=== PATIENT | female | born 1975 | race Caucasian/White ===

== ENCOUNTER 2022-02-18 10:46 | Emergency (ER) | payer OTHER ==
[2022-02-18] MEDS ORDERED: Famotidine/PF 20 mg/2ml Vial ONE (11:04)
[2022-02-18] MEDS ORDERED: methylPREDNISolone Sod Succ/PF 125 MG/2 ML VIAL ONE (11:04)
[2022-02-18 12:59] LABS: #Lymphocytes 0.5 thou/uL (1.20-3.40); #Monocytes 0.3 thou/uL (0.11-0.59); %Basophils 0.1 % (0.0-1.0); %Eosinophils 0.3 % (0.0-10.0); %Lymphocytes 5.1 % (21.0-51.0); %Monocytes 3.5 % (0.0-10.0); Hemoglobin 13.2 g/dL (12.0-16.0); Mean Corpuscular HGB CONC 34.4 g/dL (32.0-36.0); Mean Corpuscular Hemoglobin 31.5 pg (27.0-31.0); Mean Corpuscular Volume 91.6 fl (78.0-98.0); Mean Platelet Volume 7.2 fL (7.4-10.4); Platelet Count 240 10x3/uL (130-400); RBC Distribution Width 11.1 % (11.5-14.5); Red Blood Cell (RBC) Count 4.18 mill/uL (4.20-5.40); White Blood Cell (WBC) Count 8.8 10x3/uL (4.8-10.8)
[2022-02-18 13:28] LABS: ALT (SGPT) 22 U/L (8-55); AST (SGOT) 13 U/L (5-34); Albumin 3.9 g/dL (3.5-5.0); Alkaline Phosphatase 61 U/L (40-110); Anion Gap 14 mmol/L (10-20); BUN (Urea Nitrogen) Less than 4 mg/dL (7.0-18.7); Bilirubin, Total 0.3 mg/dL (0.2-1.2); Calc. Creatinine Clearance 0 mL/min (70-130); Calcium 8.6 mg/dL (7.8-10.44); Carbon Dioxide 23 mmol/L (22-29); Chloride 109 mmol/L (98-107); Estimated GFR 109; Globulin 2.2 g/dL (2.4-3.5); Glucose 87 mg/dL (70-105); Potassium 3.6 mmol/L (3.5-5.1); Protein, Total 6.1 g/dL (6.0-8.3); Sodium 142 mmol/L (136-145)
[2022-02-18] MEDS ORDERED: diphenhydrAMINE 50 MG/ML VIAL ONE (13:59)
== END 2022-02-18 14:20 | disposition home or self-care (01) ==
LOC: ERS 10:46
DX: T78.40XA Allergy, unspecified, initial encounter (principal)
CPT/HCPCS: 36415; 80053; 83735; 85025; 96374; 96375; J1200; J2930; S0028

== ENCOUNTER 2022-03-18 14:48 | Inpatient (IN) | payer OTHER ==
[2022-03-18 16:39] LABS: #Lymphocytes 0.6 thou/uL (1.20-3.40); #Monocytes 0.6 thou/uL (0.11-0.59); #Neutrophils 4.5 thou/uL (1.40-6.50); %Basophils 0.2 % (0.0-1.0); %Lymphocytes 10.2 % (21.0-51.0); %Monocytes 9.9 % (0.0-10.0); %Neutrophils 79.7 % (42.0-75.0); Hemoglobin 15.5 g/dL (12.0-16.0); Mean Corpuscular HGB CONC 34.6 g/dL (32.0-36.0); Mean Corpuscular Hemoglobin 30.9 pg (27.0-31.0); Mean Corpuscular Volume 89.3 fl (78.0-98.0); Mean Platelet Volume 7.5 fL (7.4-10.4); Platelet Count 222 10x3/uL (130-400); RBC Distribution Width 12.1 % (11.5-14.5); White Blood Cell (WBC) Count 5.7 10x3/uL (4.8-10.8)
[2022-03-18 16:56] LABS: ALT (SGPT) 50 U/L (8-55); AST (SGOT) 27 U/L (5-34); Albumin 3.9 g/dL (3.5-5.0); Alkaline Phosphatase 60 U/L (40-110); Anion Gap 19 mmol/L (10-20); BUN (Urea Nitrogen) Less than 4 mg/dL (7.0-18.7); Bilirubin, Total 0.9 mg/dL (0.2-1.2); Calc. Creatinine Clearance 0 mL/min (70-130); Calcium 9.4 mg/dL (7.8-10.44); Carbon Dioxide 18 mmol/L (22-29); Chloride 107 mmol/L (98-107); Estimated GFR 108; Globulin 2.8 g/dL (2.4-3.5); Glucose 88 mg/dL (70-105); Lipase 17 U/L (8-78); Magnesium 1.6 mg/dL (1.6-2.6); Potassium 3.1 mmol/L (3.5-5.1); Protein, Total 6.7 g/dL (6.0-8.3); Sodium 141 mmol/L (136-145)
[2022-03-18 16:57] LABS: Bilirubin Negative (Negative); Blood, Urine Negative (Negative); Clarity Clear (Clear); Glucose, Urine (Dipstick) 500 mg/dL (Negative); Ketone, Urine 150 mg/dL (Negative); Leukocyte Negative Leu/uL (Negative); Nitrite Negative (Negative); Pregnancy Test - Urine (BHCG) Negative (Negative); Pregu Control Background? CLEAR/WHITE (CLR/WHITE); Pregu Control Bar Appear? YES (CONTROL BAR); Protein, Urine (Dipstick) Negative (Neg-Trace); Specific Gravity 1.014 (1.002-1.036); Specific Gravity, Urine 1.014 (1.002-1.036); Urobilinogen Normal mg/dL (Less than 2)
[2022-03-18] MEDS ORDERED: Ondansetron ODT 4 MG TAB PO PRN (17:39)
[2022-03-18] MEDS ORDERED: Sodium Chloride 0.9% 1,000 ML IV SCH (17:45)
[2022-03-18] MEDS ORDERED: Dextrose 50% Abboject 50 ML SYRINGE SLOW IVP PRN (18:23)
[2022-03-18] MEDS ORDERED: Dextrose 5% in Water 1,000 ML IV PRN (18:23)
[2022-03-18] MEDS ORDERED: Potassium Chloride 20 MEQ/100 ML PREMIX BAG ONE ×2 (18:35→23:50)
[2022-03-18] MEDS ORDERED: hydrOXYzine 25 MG TAB PO PRN (18:36)
[2022-03-18] MEDS ORDERED: EPINEPHrine 1 mg/ml MDV (1ml Charge) IM PRN (18:38)
[2022-03-18] MEDS ORDERED: Electrolyte Replacement Protocol FS SCH (18:45)
[2022-03-18] MEDS ORDERED: Famotidine/PF 20 mg/2ml Vial ONE (20:50)
[2022-03-18] MEDS: Famotidine/PF 20 mg/2ml Vial SLOW IVP SCH (20:57)
[2022-03-18] MEDS ORDERED: Dextrose 50% Abboject 50 ML SYRINGE ONE (21:56)
[2022-03-18] MEDS ORDERED: Magnesium 2 GM/50 ML(in water) 2 GM in Premix Bag 1 BAG IVPB SCH (23:45)
[2022-03-18] MEDS ORDERED: Potassium Chloride 20 MEQ in Premix Bag 1 BAG IVPB SCH (23:45)
[2022-03-18] MEDS ORDERED: Magnesium 2 GM/50 ML BAG (IN WATER) ONE (23:51)
[2022-03-19] MEDS: Dextrose 5 %-0.45 % NaCl 1,000 ML IV SCH ×4 (00:12→23:24)
[2022-03-19] MEDS ORDERED: methylPREDNISolone Sod Succ 40 MG VIAL ONE (00:31)
[2022-03-19] MEDS: methylPREDNISolone Sod Succ 40 MG VIAL IVP SCH ×5 (00:39→23:12)
[2022-03-19 03:58] VITALS: BMI 22.4
[2022-03-19 05:51] LABS: #Lymphocytes 0.4 thou/uL (1.20-3.40); #Monocytes 0.2 thou/uL (0.11-0.59); #Neutrophils 5.4 thou/uL (1.40-6.50); %Eosinophils 0.1 % (0.0-10.0); %Lymphocytes 6.2 % (21.0-51.0); %Monocytes 2.5 % (0.0-10.0); %Neutrophils 91.2 % (42.0-75.0); Hemoglobin 14.3 g/dL (12.0-16.0); Mean Corpuscular Hemoglobin 30.7 pg (27.0-31.0); Mean Corpuscular Volume 90.1 fl (78.0-98.0); Mean Platelet Volume 7.5 fL (7.4-10.4); Platelet Count 195 10x3/uL (130-400); RBC Distribution Width 12.1 % (11.5-14.5); Red Blood Cell (RBC) Count 4.66 mill/uL (4.20-5.40); White Blood Cell (WBC) Count 5.9 10x3/uL (4.8-10.8)
[2022-03-19 06:07] LABS: Anion Gap 14 mmol/L (10-20); BUN (Urea Nitrogen) Less than 4 mg/dL (7.0-18.7); Calc. Creatinine Clearance 111 mL/min (70-130); Calcium 8.5 mg/dL (7.8-10.44); Carbon Dioxide 21 mmol/L (22-29); Chloride 105 mmol/L (98-107); Estimated GFR 111; Glucose 154 mg/dL (70-105); Potassium 3.1 mmol/L (3.5-5.1); Sodium 137 mmol/L (136-145)
[2022-03-19 06:33] LABS: Thyroid Stimulating Hormone 1.3089 uIU/mL (0.35-4.94)
[2022-03-19 06:36] LABS: Vitamin B12 Greater than 2000 pg/mL (211-911)
[2022-03-19] MEDS ORDERED: Magnesium 2 GM/50 ML(in water) 2 GM in Premix Bag 1 BAG IVPB SCH (08:00)
[2022-03-19] MEDS ORDERED: Potassium Chloride 20 MEQ TAB PO SCH (08:00)
[2022-03-19] MEDS: Famotidine/PF 20 mg/2ml Vial SLOW IVP SCH ×3 (10:21→20:08)
[2022-03-19] MEDS: Lorazepam 2 MG/ML VIAL SLOW IVP PRN ×2 (10:22→22:39)
[2022-03-19] MEDS ORDERED: Potassium Chloride 40 MEQ in Premix Bag 1 BAG IVPB SCH (10:45)
[2022-03-19 12:26] LABS: SARS-CoV-2 PCR NAA for Saliva Not Detected (NotDetected)
[2022-03-19] MEDS ORDERED: Sodium Chloride 0.9% 1,000 ML IV SCH (23:00)
[2022-03-20] MEDS: methylPREDNISolone Sod Succ 40 MG VIAL IVP SCH ×4 (05:46→23:15)
[2022-03-20 07:15] LABS: Anion Gap 14 mmol/L (10-20); BUN (Urea Nitrogen) Less than 4 mg/dL (7.0-18.7); CRP (Inflammatory) Less than 0.50 mg/dL (= or < 0.5); Calc. Creatinine Clearance 119 mL/min (70-130); Calcium 8.9 mg/dL (7.8-10.44); Carbon Dioxide 23 mmol/L (22-29); Chloride 106 mmol/L (98-107); Estimated GFR 113; Glucose 123 mg/dL (70-105); Magnesium 2.2 mg/dL (1.6-2.6); Potassium 3.2 mmol/L (3.5-5.1); Sodium 140 mmol/L (136-145)
[2022-03-20 07:29] LABS: Complement-C4 28.5 mg/dL (15-57)
[2022-03-20] MEDS ORDERED: Potassium Chloride 40 MEQ in Premix Bag 1 BAG IVPB SCH (09:00)
[2022-03-20] MEDS: Famotidine/PF 20 mg/2ml Vial SLOW IVP SCH ×3 (09:35→21:25)
[2022-03-20] MEDS ORDERED: diphenhydrAMINE 25 MG in Sodium Chloride 0.9% 50 ML IVPB SCH (12:00)
[2022-03-20] MEDS ORDERED: Amino Acids 4.25 %/Dextrose 5% 1,000 ML IV SCH (12:15)
[2022-03-20] MEDS: Dextrose 5% in Water 1,000 ML IV SCH (15:21)
[2022-03-20 15:43] LABS: Potassium 3.9 mmol/L (3.5-5.1)
[2022-03-20 17:25] LABS: ALT (SGPT) 95 U/L (8-55); AST (SGOT) 62 U/L (5-34); Albumin 3.4 g/dL (3.5-5.0); Alkaline Phosphatase 49 U/L (40-110); Anion Gap 14 mmol/L (10-20); BUN (Urea Nitrogen) Less than 4 mg/dL (7.0-18.7); Bilirubin, Direct 0.5 mg/dL (0.1-0.3); Bilirubin, Total 0.9 mg/dL (0.2-1.2); Calc. Creatinine Clearance 119 mL/min (70-130); Calcium 8.9 mg/dL (7.8-10.44); Carbon Dioxide 24 mmol/L (22-29); Chloride 107 mmol/L (98-107); Estimated GFR 113; Globulin 2.2 g/dL (2.4-3.5); Glucose 101 mg/dL (70-105); Magnesium 2.1 mg/dL (1.6-2.6); Phosphorus 2.7 mg/dL (2.3-4.7); Potassium 3.8 mmol/L (3.5-5.1); Protein, Total 5.6 g/dL (6.0-8.3); Sodium 141 mmol/L (136-145)
[2022-03-20] MEDS ORDERED: Sodium Chloride 0.9% 500 ML IV SCH (18:15)
[2022-03-20] MEDS: Sodium Chloride 0.9% 1,000 ML IV SCH ×2 (18:28→19:54)
[2022-03-20] MEDS: diphenhydrAMINE 25 MG in Sodium Chloride 0.9% 50 ML IVPB SCH ×2 (18:35→23:14)
[2022-03-20] MEDS: Lorazepam 2 MG/ML VIAL SLOW IVP PRN (19:48)
[2022-03-20] MEDS: Ondansetron PF 4 MG/2 ML Vial IVP PRN (19:48)
[2022-03-21] MEDS: Sodium Chloride 0.9% 1,000 ML IV SCH ×4 (00:40→21:05)
[2022-03-21] MEDS: diphenhydrAMINE 25 MG in Sodium Chloride 0.9% 50 ML IVPB SCH ×4 (06:10→21:05)
[2022-03-21] MEDS: methylPREDNISolone Sod Succ 40 MG VIAL IVP SCH ×4 (06:11→23:51)
[2022-03-21 07:20] LABS: ALT (SGPT) 130 U/L (8-55); AST (SGOT) 73 U/L (5-34); Albumin 3.2 g/dL (3.5-5.0); Alkaline Phosphatase 50 U/L (40-110); Anion Gap 14 mmol/L (10-20); BUN (Urea Nitrogen) 5 mg/dL (7.0-18.7); Bilirubin, Total 1.1 mg/dL (0.2-1.2); Calc. Creatinine Clearance 121 mL/min (70-130); Calcium 8.8 mg/dL (7.8-10.44); Carbon Dioxide 20 mmol/L (22-29); Chloride 109 mmol/L (98-107); Estimated GFR 113; Globulin 2.4 g/dL (2.4-3.5); Glucose 116 mg/dL (70-105); Magnesium 2.1 mg/dL (1.6-2.6); Phosphorus 3.5 mg/dL (2.3-4.7); Potassium 3.6 mmol/L (3.5-5.1); Protein, Total 5.6 g/dL (6.0-8.3); Sodium 139 mmol/L (136-145)
[2022-03-21] MEDS: Dextrose 5% in Water 1,000 ML IV SCH ×2 (07:30→21:08)
[2022-03-21 07:32] LABS: Bilirubin, Direct 0.7 mg/dL (0.1-0.3)
[2022-03-21] MEDS: Famotidine/PF 20 mg/2ml Vial SLOW IVP SCH ×2 (08:16→21:05)
[2022-03-21] MEDS: Ondansetron PF 4 MG/2 ML Vial IVP PRN ×2 (08:22→23:56)
[2022-03-21] MEDS ORDERED: Amino Acids 4.25 %/Dextrose 5% 2,000 ML BAG IV SCH ×2 (09:00)
[2022-03-21] MEDS: Lorazepam 2 MG/ML VIAL SLOW IVP PRN ×2 (11:47→21:12)
[2022-03-21] MEDS: MULTIVITAMINS IV SCH (14:07)
[2022-03-21] MEDS: FAT EMULSION IV SCH (14:07)
[2022-03-21] MEDS: TRACE ELEMENT IV SCH (14:07)
[2022-03-21] MEDS: [UNRECOGNIZED DRUG - OTHER] IV SCH (14:07)
[2022-03-21 18:07] LABS: EliA Celiac New Method **** NEW METHOD ****; t-Transglutaminase (tTG) IgA 0.9 EliAU/mL (<7 Negative)
[2022-03-22 02:07] LABS: Tryptase 3.5 ug/L (2.2-13.2)
[2022-03-22] MEDS: methylPREDNISolone Sod Succ 40 MG VIAL IVP SCH ×4 (05:32→23:17)
[2022-03-22] MEDS: diphenhydrAMINE 25 MG in Sodium Chloride 0.9% 50 ML IVPB SCH ×4 (05:32→20:18)
[2022-03-22 07:24] LABS: ALT (SGPT) 219 U/L (8-55); AST (SGOT) 115 U/L (5-34); Albumin 3.5 g/dL (3.5-5.0); Alkaline Phosphatase 54 U/L (40-110); Bilirubin, Direct 0.9 mg/dL (0.1-0.3); Bilirubin, Total 1.4 mg/dL (0.2-1.2); Protein, Total 5.9 g/dL (6.0-8.3)
[2022-03-22 07:35] LABS: ALT (SGPT) 225 U/L (8-55); AST (SGOT) 120 U/L (5-34); Albumin 3.6 g/dL (3.5-5.0); Alkaline Phosphatase 54 U/L (40-110); Anion Gap 14 mmol/L (10-20); BUN (Urea Nitrogen) 6 mg/dL (7.0-18.7); Bilirubin, Total 1.5 mg/dL (0.2-1.2); Calc. Creatinine Clearance 115 mL/min (70-130); Calcium 8.9 mg/dL (7.8-10.44); Carbon Dioxide 27 mmol/L (22-29); Chloride 105 mmol/L (98-107); Estimated GFR 112; Globulin 2.3 g/dL (2.4-3.5); Glucose 168 mg/dL (70-105); Magnesium 2.2 mg/dL (1.6-2.6); Phosphorus 2.4 mg/dL (2.3-4.7); Protein, Total 5.9 g/dL (6.0-8.3); Sodium 143 mmol/L (136-145)
[2022-03-22] MEDS ORDERED: Potassium Chloride 40 MEQ in Premix Bag 1 BAG IVPB SCH (09:00)
[2022-03-22] MEDS: Famotidine/PF 20 mg/2ml Vial SLOW IVP SCH (09:28)
[2022-03-22] MEDS: Ondansetron PF 4 MG/2 ML Vial IVP PRN (09:28)
[2022-03-22] MEDS: Sodium Chloride 0.9% 1,000 ML IV SCH ×2 (09:34→20:18)
[2022-03-22] MEDS ORDERED: EPINEPHrine 1 MG/ML AMP ONE (10:35)
[2022-03-22] MEDS ORDERED: Hydrocortisone Sod Succ/PF 250 mg/2 ml Vial ONE (10:35)
[2022-03-22] MEDS ORDERED: PROPOFOL 200 MG/20 ML VIAL ONE (10:52)
[2022-03-22] MEDS: MULTIVITAMINS IV SCH (14:59)
[2022-03-22] MEDS: [UNRECOGNIZED DRUG - OTHER] IV SCH (14:59)
[2022-03-22] MEDS: TRACE ELEMENT IV SCH (14:59)
[2022-03-22] MEDS: FAT EMULSION IV SCH (14:59)
[2022-03-22] MEDS: Lorazepam 2 MG/ML VIAL SLOW IVP PRN (20:18)
[2022-03-22] MEDS: Ipratropium Bromide 0.03% Nasal Inhaler 30 ml Bottle EA NARE SCH (20:18)
[2022-03-23] MEDS: Famotidine/PF 20 mg/2ml Vial SLOW IVP SCH ×4 (00:31→23:04)
[2022-03-23] MEDS: methylPREDNISolone Sod Succ 40 MG VIAL IVP SCH ×3 (05:29→17:08)
[2022-03-23] MEDS: Sodium Chloride 0.9% 1,000 ML IV SCH ×3 (05:29→15:48)
[2022-03-23] MEDS: diphenhydrAMINE 25 MG in Sodium Chloride 0.9% 50 ML IVPB SCH ×4 (05:29→23:01)
[2022-03-23 06:25] LABS: ALT (SGPT) 362 U/L (8-55); AST (SGOT) 168 U/L (5-34); Albumin 3.3 g/dL (3.5-5.0); Alkaline Phosphatase 54 U/L (40-110); Bilirubin, Direct 0.9 mg/dL (0.1-0.3); Bilirubin, Total 1.6 mg/dL (0.2-1.2); Protein, Total 5.7 g/dL (6.0-8.3)
[2022-03-23 06:30] LABS: ALT (SGPT) 349 U/L (8-55); AST (SGOT) 166 U/L (5-34); Albumin 3.4 g/dL (3.5-5.0); Alkaline Phosphatase 53 U/L (40-110); Anion Gap 11 mmol/L (10-20); BUN (Urea Nitrogen) 6 mg/dL (7.0-18.7); Bilirubin, Total 1.5 mg/dL (0.2-1.2); Calc. Creatinine Clearance 121 mL/min (70-130); Calcium 8.6 mg/dL (7.8-10.44); Carbon Dioxide 25 mmol/L (22-29); Chloride 107 mmol/L (98-107); Estimated GFR 113; Glucose 142 mg/dL (70-105); Magnesium 2.2 mg/dL (1.6-2.6); Potassium 3.1 mmol/L (3.5-5.1); Protein, Total 5.4 g/dL (6.0-8.3); Sodium 140 mmol/L (136-145)
[2022-03-23] MEDS ORDERED: Potassium Chloride 40 MEQ in Premix Bag 1 BAG IVPB SCH (08:00)
[2022-03-23] MEDS: Ipratropium Bromide 0.03% Nasal Inhaler 30 ml Bottle EA NARE SCH ×3 (09:21→19:39)
[2022-03-23] MEDS: Lorazepam 2 MG/ML VIAL SLOW IVP PRN (12:33)
[2022-03-23] MEDS: TRACE ELEMENT IV SCH (15:29)
[2022-03-23] MEDS: [UNRECOGNIZED DRUG - OTHER] IV SCH (15:29)
[2022-03-23] MEDS: FAT EMULSION IV SCH (15:29)
[2022-03-23] MEDS: MULTIVITAMINS IV SCH (15:29)
[2022-03-23] MEDS: Ondansetron PF 4 MG/2 ML Vial IVP PRN ×2 (15:36→23:05)
[2022-03-24] MEDS: Sodium Chloride 0.9% 1,000 ML IV SCH ×5 (00:41→19:35)
[2022-03-24] MEDS: methylPREDNISolone Sod Succ 40 MG VIAL IVP SCH ×4 (00:42→18:10)
[2022-03-24] MEDS: diphenhydrAMINE 25 MG in Sodium Chloride 0.9% 50 ML IVPB SCH ×4 (05:17→22:22)
[2022-03-24 07:00] LABS: ALT (SGPT) 539 U/L (8-55); AST (SGOT) 185 U/L (5-34); Albumin 3.4 g/dL (3.5-5.0); Alkaline Phosphatase 63 U/L (40-110); Bilirubin, Direct 0.7 mg/dL (0.1-0.3); Bilirubin, Total 1.2 mg/dL (0.2-1.2); Protein, Total 5.6 g/dL (6.0-8.3)
[2022-03-24 07:17] LABS: ALT (SGPT) 547 U/L (8-55); AST (SGOT) 191 U/L (5-34); Albumin 3.4 g/dL (3.5-5.0); Alkaline Phosphatase 62 U/L (40-110); Anion Gap 12 mmol/L (10-20); BUN (Urea Nitrogen) 6 mg/dL (7.0-18.7); Bilirubin, Total 1.3 mg/dL (0.2-1.2); Calc. Creatinine Clearance 115 mL/min (70-130); Calcium 8.6 mg/dL (7.8-10.44); Carbon Dioxide 25 mmol/L (22-29); Chloride 105 mmol/L (98-107); Estimated GFR 112; Globulin 2.3 g/dL (2.4-3.5); Glucose 131 mg/dL (70-105); Magnesium 2.1 mg/dL (1.6-2.6); Phosphorus 3.7 mg/dL (2.3-4.7); Potassium 3.1 mmol/L (3.5-5.1); Protein, Total 5.7 g/dL (6.0-8.3); Sodium 139 mmol/L (136-145)
[2022-03-24] MEDS ORDERED: Potassium Chloride 40 MEQ in Premix Bag 1 BAG IVPB SCH (08:45)
[2022-03-24] MEDS: Famotidine/PF 20 mg/2ml Vial SLOW IVP SCH ×2 (09:04→20:28)
[2022-03-24] MEDS: Ipratropium Bromide 0.03% Nasal Inhaler 30 ml Bottle EA NARE SCH ×3 (09:14→20:28)
[2022-03-24 14:40] LABS: 5 HIAA,Urine 1.3 mg/L (Undefined); 5 HIAA-24H Urine 2.5 mg/24 hr (0.0-14.9)
[2022-03-24] MEDS: [UNRECOGNIZED DRUG - OTHER] IV SCH (15:08)
[2022-03-24] MEDS: MULTIVITAMINS IV SCH (15:08)
[2022-03-24] MEDS: FAT EMULSION IV SCH (15:08)
[2022-03-24] MEDS: TRACE ELEMENT IV SCH (15:08)
[2022-03-24] MEDS: Ondansetron PF 4 MG/2 ML Vial IVP PRN (16:30)
[2022-03-24] MEDS: Lorazepam 2 MG/ML VIAL SLOW IVP PRN (18:12)
[2022-03-24] MEDS ORDERED: diphenhydrAMINE 50 MG in Sodium Chloride 0.9% 50 ML IVPB SCH (22:45)
[2022-03-25] MEDS: methylPREDNISolone Sod Succ 40 MG VIAL IVP SCH ×4 (00:23→18:06)
[2022-03-25] MEDS: Lorazepam 2 MG/ML VIAL SLOW IVP PRN ×2 (00:23→19:02)
[2022-03-25] MEDS: Ondansetron PF 4 MG/2 ML Vial IVP PRN (00:25)
[2022-03-25] MEDS: Sodium Chloride 0.9% 1,000 ML IV SCH ×3 (04:37→23:31)
[2022-03-25] MEDS: diphenhydrAMINE 25 MG in Sodium Chloride 0.9% 50 ML IVPB SCH ×2 (05:55→11:16)
[2022-03-25 06:21] LABS: Calcium 8.3 mg/dL (7.8-10.44); Chloride 107 mmol/L (98-107); Potassium 4.5 mmol/L (3.5-5.1); Sodium 135 mmol/L (136-145)
[2022-03-25 06:24] LABS: Bilirubin, Total 1.3 mg/dL (0.2-1.2)
[2022-03-25 06:27] LABS: AST (SGOT) 211 U/L (5-34)
[2022-03-25 06:50] LABS: Globulin 3.2 g/dL (2.4-3.5); Glucose 124 mg/dL (70-105); Protein, Total 6.2 g/dL (6.0-8.3)
[2022-03-25 06:52] LABS: Anion Gap 17 mmol/L (10-20); Carbon Dioxide 16 mmol/L (22-29)
[2022-03-25 06:53] LABS: Alkaline Phosphatase 68 U/L (40-110); Calc. Creatinine Clearance 106 mL/min (70-130); Estimated GFR 109
[2022-03-25 06:54] LABS: BUN (Urea Nitrogen) 8 mg/dL (7.0-18.7)
[2022-03-25 06:55] LABS: Bilirubin, Direct 0.3 mg/dL (0.1-0.3)
[2022-03-25 06:56] LABS: ALT (SGPT) 650 U/L (8-55)
[2022-03-25] MEDS: Famotidine/PF 20 mg/2ml Vial SLOW IVP SCH ×2 (08:25→20:18)
[2022-03-25] MEDS: Ipratropium Bromide 0.03% Nasal Inhaler 30 ml Bottle EA NARE SCH ×3 (09:39→20:18)
[2022-03-25] MEDS ORDERED: diphenhydrAMINE 25 MG in Sodium Chloride 0.9% 50 ML IVPB SCH (13:30)
[2022-03-25] MEDS: TRACE ELEMENT IV SCH ×2 (16:00→19:02)
[2022-03-25] MEDS: MULTIVITAMINS IV SCH ×2 (16:00→19:02)
[2022-03-25] MEDS: FAT EMULSION IV SCH ×2 (16:00→19:02)
[2022-03-25] MEDS: [UNRECOGNIZED DRUG - OTHER] IV SCH ×2 (16:00→19:02)
[2022-03-25] MEDS: diphenhydrAMINE 50 MG in Sodium Chloride 0.9% 50 ML IVPB SCH (18:06)
[2022-03-25] MEDS ORDERED: [UNRECOGNIZED DRUG - OTHER] NEB PRN (22:49)
[2022-03-26] MEDS: methylPREDNISolone Sod Succ 40 MG VIAL IVP SCH ×4 (00:07→18:19)
[2022-03-26] MEDS: diphenhydrAMINE 50 MG in Sodium Chloride 0.9% 50 ML IVPB SCH ×4 (00:07→18:34)
[2022-03-26 06:57] LABS: ALT (SGPT) 616 U/L (8-55); AST (SGOT) 102 U/L (5-34); Albumin 3.4 g/dL (3.5-5.0); Alkaline Phosphatase 68 U/L (40-110); Anion Gap 12 mmol/L (10-20); BUN (Urea Nitrogen) 7 mg/dL (7.0-18.7); Bilirubin, Direct 0.6 mg/dL (0.1-0.3); Bilirubin, Total 1.2 mg/dL (0.2-1.2); Calc. Creatinine Clearance 115 mL/min (70-130); Calcium 8.8 mg/dL (7.8-10.44); Carbon Dioxide 25 mmol/L (22-29); Chloride 105 mmol/L (98-107); Estimated GFR 112; Globulin 2.4 g/dL (2.4-3.5); Glucose 139 mg/dL (70-105); Potassium 3.2 mmol/L (3.5-5.1); Protein, Total 5.8 g/dL (6.0-8.3); Sodium 139 mmol/L (136-145)
[2022-03-26] MEDS ORDERED: Potassium Chloride 40 MEQ in Premix Bag 1 BAG IVPB SCH (08:00)
[2022-03-26] MEDS: Famotidine/PF 20 mg/2ml Vial SLOW IVP SCH ×2 (10:05→21:22)
[2022-03-26] MEDS: KETOTIFEN PO SCH ×2 (10:06→22:34)
[2022-03-26] MEDS: Ipratropium Bromide 0.03% Nasal Inhaler 30 ml Bottle EA NARE SCH ×2 (10:06→18:16)
[2022-03-26] MEDS: [UNRECOGNIZED DRUG - OTHER] IV SCH ×2 (14:00→18:19)
[2022-03-26] MEDS: MULTIVITAMINS IV SCH ×2 (14:00→18:19)
[2022-03-26] MEDS: FAT EMULSION IV SCH ×2 (14:00→18:19)
[2022-03-26] MEDS: TRACE ELEMENT IV SCH ×2 (14:00→18:19)
[2022-03-26] MEDS: Lorazepam 2 MG/ML VIAL SLOW IVP PRN ×2 (16:50→22:34)
[2022-03-26] MEDS: Sodium Chloride 0.9% 1,000 ML IV SCH (21:37)
[2022-03-27] MEDS: diphenhydrAMINE 50 MG in Sodium Chloride 0.9% 50 ML IVPB SCH ×4 (00:05→19:44)
[2022-03-27] MEDS: methylPREDNISolone Sod Succ 40 MG VIAL IVP SCH ×4 (00:05→19:44)
[2022-03-27] MEDS: Sodium Chloride 0.9% 1,000 ML IV SCH ×3 (00:11→22:28)
[2022-03-27 06:32] LABS: ALT (SGPT) 523 U/L (8-55); AST (SGOT) 72 U/L (5-34); Albumin 3.3 g/dL (3.5-5.0); Alkaline Phosphatase 66 U/L (40-110); Anion Gap 12 mmol/L (10-20); BUN (Urea Nitrogen) 8 mg/dL (7.0-18.7); Bilirubin, Direct 0.6 mg/dL (0.1-0.3); Bilirubin, Total 1.3 mg/dL (0.2-1.2); Calc. Creatinine Clearance 111 mL/min (70-130); Calcium 8.8 mg/dL (7.8-10.44); Carbon Dioxide 24 mmol/L (22-29); Chloride 107 mmol/L (98-107); Estimated GFR 111; Globulin 2.3 g/dL (2.4-3.5); Glucose 137 mg/dL (70-105); Potassium 3.7 mmol/L (3.5-5.1); Protein, Total 5.6 g/dL (6.0-8.3); Sodium 139 mmol/L (136-145)
[2022-03-27] MEDS: Ipratropium Bromide 0.03% Nasal Inhaler 30 ml Bottle EA NARE SCH ×4 (07:42→22:29)
[2022-03-27] MEDS: Famotidine/PF 20 mg/2ml Vial SLOW IVP SCH ×2 (10:51→22:28)
[2022-03-27] MEDS: KETOTIFEN PO SCH (10:51)
[2022-03-27] MEDS: TRACE ELEMENT IV SCH ×2 (17:00→19:44)
[2022-03-27] MEDS: FAT EMULSION IV SCH ×2 (17:00→19:44)
[2022-03-27] MEDS: MULTIVITAMINS IV SCH ×2 (17:00→19:44)
[2022-03-27] MEDS: [UNRECOGNIZED DRUG - OTHER] IV SCH ×2 (17:00→19:44)
[2022-03-27] MEDS: Lorazepam 2 MG/ML VIAL SLOW IVP PRN (17:23)
[2022-03-28] MEDS: methylPREDNISolone Sod Succ 40 MG VIAL IVP SCH ×3 (00:04→16:44)
[2022-03-28] MEDS: diphenhydrAMINE 50 MG in Sodium Chloride 0.9% 50 ML IVPB SCH ×4 (00:04→17:23)
[2022-03-28] MEDS: KETOTIFEN PO SCH ×2 (00:05→10:14)
[2022-03-28] MEDS: Ipratropium Bromide 0.03% Nasal Inhaler 30 ml Bottle EA NARE SCH ×3 (10:14→22:42)
[2022-03-28] MEDS: Famotidine/PF 20 mg/2ml Vial SLOW IVP SCH ×2 (10:14→22:39)
[2022-03-28] MEDS: Sodium Chloride 0.9% 1,000 ML IV SCH (11:00)
[2022-03-28] MEDS ORDERED: methylPREDNISolone Sod Succ 40 MG VIAL IVP SCH (15:00)
[2022-03-28] MEDS: MULTIVITAMINS IV SCH ×2 (16:41→18:24)
[2022-03-28] MEDS: [UNRECOGNIZED DRUG - OTHER] IV SCH ×2 (16:41→18:24)
[2022-03-28] MEDS: TRACE ELEMENT IV SCH ×2 (16:41→18:24)
[2022-03-28] MEDS: FAT EMULSION IV SCH ×2 (16:41→18:24)
[2022-03-28] MEDS: Lorazepam 2 MG/ML VIAL SLOW IVP PRN (18:49)
[2022-03-29] MEDS: Lorazepam 2 MG/ML VIAL SLOW IVP PRN (00:33)
[2022-03-29] MEDS: diphenhydrAMINE 25 MG in Sodium Chloride 0.9% 50 ML IVPB SCH ×4 (00:34→17:05)
[2022-03-29] MEDS: Sodium Chloride 0.9% 1,000 ML IV SCH ×2 (00:35→10:07)
[2022-03-29] MEDS ORDERED: methylPREDNISolone Sod Succ 40 MG VIAL IVP SCH ×2 (04:00→16:15)
[2022-03-29] MEDS: KETOTIFEN PO SCH ×2 (05:00→21:00)
[2022-03-29 06:22] LABS: ALT (SGPT) 576 U/L (8-55); AST (SGOT) 98 U/L (5-34); Albumin 3.6 g/dL (3.5-5.0); Alkaline Phosphatase 73 U/L (40-110); Anion Gap 14 mmol/L (10-20); BUN (Urea Nitrogen) 11 mg/dL (7.0-18.7); Bilirubin, Total 1.6 mg/dL (0.2-1.2); Calc. Creatinine Clearance 98 mL/min (70-130); Calcium 8.9 mg/dL (7.8-10.44); Carbon Dioxide 22 mmol/L (22-29); Chloride 105 mmol/L (98-107); Estimated GFR 107; Globulin 2.6 g/dL (2.4-3.5); Glucose 88 mg/dL (70-105); Magnesium 2.4 mg/dL (1.6-2.6); Phosphorus 4.2 mg/dL (2.3-4.7); Potassium 3.2 mmol/L (3.5-5.1); Protein, Total 6.2 g/dL (6.0-8.3); Sodium 138 mmol/L (136-145)
[2022-03-29 06:39] LABS: HBCM Index 0.08 S/CO (0-0.79); HBSAg Index 0.38 S/CO (0-0.99); Hep A IgM AB Non-Reactive (NonReactive); Hep A IgM S/CO 0.22 S/CO (0-0.79); Hep B Surf Ag Non-Reactive S/CO (NonReactive); Hep C IgG Ab Non-Reactive (NonReactive); Hep C Index 0.06 S/CO (0-0.79); Hepatitis B Core IgM Abs Non-Reactive (NonReactive)
[2022-03-29] MEDS ORDERED: Potassium Chloride 40 MEQ in Premix Bag 1 BAG IVPB SCH (08:45)
[2022-03-29] MEDS: Famotidine/PF 20 mg/2ml Vial SLOW IVP SCH ×2 (10:08→21:40)
[2022-03-29] MEDS: [UNRECOGNIZED DRUG - OTHER] IV SCH (17:04)
[2022-03-29] MEDS: MULTIVITAMINS IV SCH (17:04)
[2022-03-29] MEDS: TRACE ELEMENT IV SCH (17:04)
[2022-03-29] MEDS: FAT EMULSION IV SCH (17:04)
[2022-03-29] MEDS: Ipratropium Bromide 0.03% Nasal Inhaler 30 ml Bottle EA NARE SCH ×2 (18:29→21:00)
[2022-03-30] MEDS: Lorazepam 2 MG/ML VIAL SLOW IVP PRN ×2 (00:06→19:19)
[2022-03-30] MEDS: Sodium Chloride 0.9% 1,000 ML IV SCH ×2 (06:00→20:28)
[2022-03-30] MEDS ORDERED: methylPREDNISolone Sod Succ 40 MG VIAL IVP SCH (09:00)
[2022-03-30] MEDS: diphenhydrAMINE 25 MG in Sodium Chloride 0.9% 50 ML IVPB SCH ×3 (09:04→20:28)
[2022-03-30] MEDS: Famotidine/PF 20 mg/2ml Vial SLOW IVP SCH ×2 (09:05→22:52)
[2022-03-30 10:03] LABS: Allergen,Egg white IgE Less than 0.10 kU/L (Less than 0.10); Allergen,Egg yolk IgE Less than 0.10 kU/L (Less than 0.10); Allergen,Milk IgE Less than 0.10 kU/L (Less than 0.10); Allergen,Peanut IgE Less than 0.10 kU/L (Less than 0.10); Allergen,Pecan nut IgE Less than 0.10 kU/L (Less than 0.10); Allergen,Soybean IgE 0.35 kU/L (Less than 0.10); Allergen,Wheat IgE Less than 0.10 kU/L (Less than 0.10)
[2022-03-30] MEDS: TRACE ELEMENT IV SCH (14:47)
[2022-03-30] MEDS: FAT EMULSION IV SCH (14:47)
[2022-03-30] MEDS: MULTIVITAMINS IV SCH (14:47)
[2022-03-30] MEDS: [UNRECOGNIZED DRUG - OTHER] IV SCH (14:47)
[2022-03-30] MEDS: KETOTIFEN PO SCH ×3 (19:28→22:53)
[2022-03-30] MEDS: Ipratropium Bromide 0.03% Nasal Inhaler 30 ml Bottle EA NARE SCH ×2 (19:29→22:52)
[2022-03-30] MEDS: EPINEPHrine 1 MG/ML AMP IM PRN (19:30)
[2022-03-30] MEDS ORDERED: diphenhydrAMINE 25 MG in Sodium Chloride 0.9% 50 ML IVPB SCH (22:30)
[2022-03-30] MEDS: methylPREDNISolone Sod Succ 40 MG VIAL IVP SCH (22:52)
[2022-03-31 07:41] LABS: #Eosinphils 0.1 thou/uL (0.0-0.7); #Lymphocytes 0.7 thou/uL (1.20-3.40); #Monocytes 0.5 thou/uL (0.11-0.59); #Neutrophils 7.9 thou/uL (1.40-6.50); %Basophils 0.4 % (0.0-1.0); %Eosinophils 0.5 % (0.0-10.0); %Lymphocytes 7.5 % (21.0-51.0); %Monocytes 4.9 % (0.0-10.0); %Neutrophils 86.7 % (42.0-75.0); Hemoglobin 14.2 g/dL (12.0-16.0); Mean Corpuscular HGB CONC 33.3 g/dL (32.0-36.0); Mean Corpuscular Hemoglobin 30.8 pg (27.0-31.0); Mean Corpuscular Volume 92.5 fl (78.0-98.0); Mean Platelet Volume 7.7 fL (7.4-10.4); Platelet Count 174 10x3/uL (130-400); RBC Distribution Width 12.2 % (11.5-14.5); White Blood Cell (WBC) Count 9.1 10x3/uL (4.8-10.8)
[2022-03-31 07:53] LABS: ALT (SGPT) 503 U/L (8-55); AST (SGOT) 74 U/L (5-34); Albumin 3.1 g/dL (3.5-5.0); Alkaline Phosphatase 71 U/L (40-110); Anion Gap 11 mmol/L (10-20); BUN (Urea Nitrogen) 9 mg/dL (7.0-18.7); Calc. Creatinine Clearance 117 mL/min (70-130); Calcium 8.5 mg/dL (7.8-10.44); Carbon Dioxide 24 mmol/L (22-29); Chloride 106 mmol/L (98-107); Estimated GFR 112; Globulin 2.2 g/dL (2.4-3.5); Glucose 137 mg/dL (70-105); Potassium 3.7 mmol/L (3.5-5.1); Protein, Total 5.3 g/dL (6.0-8.3); Sodium 137 mmol/L (136-145)
[2022-03-31] MEDS: methylPREDNISolone Sod Succ 40 MG VIAL IVP SCH ×2 (09:19→21:51)
[2022-03-31] MEDS: diphenhydrAMINE 25 MG in Sodium Chloride 0.9% 50 ML IVPB SCH ×2 (09:19→21:50)
[2022-03-31] MEDS: Famotidine/PF 20 mg/2ml Vial SLOW IVP SCH ×2 (09:54→21:51)
[2022-03-31] MEDS: Sodium Chloride 0.9% 1,000 ML IV SCH ×2 (13:17→21:51)
[2022-03-31] MEDS: Ipratropium Bromide 0.03% Nasal Inhaler 30 ml Bottle EA NARE SCH ×2 (13:23→21:51)
[2022-03-31] MEDS: KETOTIFEN PO SCH ×2 (13:25→21:51)
[2022-03-31] MEDS: [UNRECOGNIZED DRUG - OTHER] IV SCH (14:01)
[2022-03-31] MEDS: MULTIVITAMINS IV SCH (14:01)
[2022-03-31] MEDS: FAT EMULSION IV SCH (14:01)
[2022-03-31] MEDS: TRACE ELEMENT IV SCH (14:01)
[2022-03-31] MEDS: Lorazepam 2 MG/ML VIAL SLOW IVP PRN (18:04)
[2022-04-01] MEDS: Lorazepam 2 MG/ML VIAL SLOW IVP PRN ×2 (00:11→21:34)
[2022-04-01] MEDS: diphenhydrAMINE 25 MG in Sodium Chloride 0.9% 50 ML IVPB SCH ×2 (09:40→21:31)
[2022-04-01] MEDS: methylPREDNISolone Sod Succ 40 MG VIAL IVP SCH ×2 (09:41→21:32)
[2022-04-01] MEDS: Famotidine/PF 20 mg/2ml Vial SLOW IVP SCH ×2 (09:41→21:34)
[2022-04-01] MEDS: Ipratropium Bromide 0.03% Nasal Inhaler 30 ml Bottle EA NARE SCH ×3 (09:42→21:33)
[2022-04-01] MEDS: KETOTIFEN PO SCH ×2 (09:43→21:33)
[2022-04-01] MEDS: Sodium Chloride 0.9% 1,000 ML IV SCH ×2 (10:01→14:09)
[2022-04-01] MEDS: FAT EMULSION IV SCH (14:10)
[2022-04-01] MEDS: [UNRECOGNIZED DRUG - OTHER] IV SCH (14:10)
[2022-04-01] MEDS: MULTIVITAMINS IV SCH (14:10)
[2022-04-01] MEDS: TRACE ELEMENT IV SCH (14:10)
[2022-04-01] MEDS: EPINEPHrine 1 MG/ML AMP IM PRN ×2 (19:31→19:51)
[2022-04-01] MEDS ORDERED: Sodium Chloride 0.9% 500 ML IV SCH (20:45)
[2022-04-01] MEDS ORDERED: methylPREDNISolone Sod Succ 40 MG VIAL IVP SCH (21:00)
[2022-04-02 05:43] LABS: #Lymphocytes 0.6 thou/uL (1.20-3.40); #Monocytes 0.4 thou/uL (0.11-0.59); #Neutrophils 10.2 thou/uL (1.40-6.50); %Basophils 0.3 % (0.0-1.0); %Eosinophils 0.4 % (0.0-10.0); %Lymphocytes 5.2 % (21.0-51.0); %Monocytes 3.9 % (0.0-10.0); %Neutrophils 90.2 % (42.0-75.0); Hemoglobin 14.5 g/dL (12.0-16.0); Mean Corpuscular HGB CONC 33.3 g/dL (32.0-36.0); Mean Corpuscular Hemoglobin 30.7 pg (27.0-31.0); Mean Corpuscular Volume 92.1 fl (78.0-98.0); Mean Platelet Volume 7.7 fL (7.4-10.4); Platelet Count 155 10x3/uL (130-400); RBC Distribution Width 12.4 % (11.5-14.5); Red Blood Cell (RBC) Count 4.74 mill/uL (4.20-5.40); White Blood Cell (WBC) Count 11.3 10x3/uL (4.8-10.8)
[2022-04-02 06:12] LABS: ALT (SGPT) 383 U/L (8-55); AST (SGOT) 61 U/L (5-34); Albumin 3.1 g/dL (3.5-5.0); Alkaline Phosphatase 74 U/L (40-110); Anion Gap 14 mmol/L (10-20); BUN (Urea Nitrogen) 9 mg/dL (7.0-18.7); CRP (Inflammatory) Less than 0.50 mg/dL (= or < 0.5); Calc. Creatinine Clearance 109 mL/min (70-130); Calcium 8.7 mg/dL (7.8-10.44); Carbon Dioxide 20 mmol/L (22-29); Chloride 107 mmol/L (98-107); Estimated GFR 110; Globulin 2.9 g/dL (2.4-3.5); Glucose 107 mg/dL (70-105); Potassium 4.5 mmol/L (3.5-5.1); Sodium 136 mmol/L (136-145)
[2022-04-02] MEDS: KETOTIFEN PO SCH ×2 (09:00→20:20)
[2022-04-02] MEDS: Ipratropium Bromide 0.03% Nasal Inhaler 30 ml Bottle EA NARE SCH ×3 (09:00→20:20)
[2022-04-02] MEDS: Famotidine/PF 20 mg/2ml Vial SLOW IVP SCH ×2 (09:09→23:18)
[2022-04-02] MEDS: diphenhydrAMINE 25 MG in Sodium Chloride 0.9% 50 ML IVPB SCH ×2 (09:11→20:24)
[2022-04-02] MEDS: methylPREDNISolone Sod Succ 40 MG VIAL IVP SCH ×2 (09:22→20:24)
[2022-04-02] MEDS: Sodium Chloride 0.9% 1,000 ML IV SCH ×2 (14:04→20:24)
[2022-04-02] MEDS: [UNRECOGNIZED DRUG - OTHER] IV SCH (14:52)
[2022-04-02] MEDS: MULTIVITAMINS IV SCH (14:52)
[2022-04-02] MEDS: FAT EMULSION IV SCH (14:52)
[2022-04-02] MEDS: TRACE ELEMENT IV SCH (14:52)
[2022-04-02] MEDS: Lorazepam 2 MG/ML VIAL SLOW IVP PRN (23:19)
[2022-04-03 05:37] LABS: #Lymphocytes 0.6 thou/uL (1.20-3.40); #Monocytes 0.5 thou/uL (0.11-0.59); #Neutrophils 7.8 thou/uL (1.40-6.50); %Basophils 0.4 % (0.0-1.0); %Eosinophils 0.3 % (0.0-10.0); %Lymphocytes 6.6 % (21.0-51.0); %Monocytes 5.3 % (0.0-10.0); %Neutrophils 87.4 % (42.0-75.0); Hemoglobin 14.6 g/dL (12.0-16.0); Mean Corpuscular Hemoglobin 30.4 pg (27.0-31.0); Mean Corpuscular Volume 92.1 fl (78.0-98.0); Mean Platelet Volume 7.9 fL (7.4-10.4); Platelet Count 165 10x3/uL (130-400); RBC Distribution Width 12.4 % (11.5-14.5); Red Blood Cell (RBC) Count 4.79 mill/uL (4.20-5.40); White Blood Cell (WBC) Count 8.9 10x3/uL (4.8-10.8)
[2022-04-03 05:53] LABS: ALT (SGPT) 315 U/L (8-55); AST (SGOT) 36 U/L (5-34); Albumin 3.4 g/dL (3.5-5.0); Alkaline Phosphatase 74 U/L (40-110); Anion Gap 14 mmol/L (10-20); BUN (Urea Nitrogen) 9 mg/dL (7.0-18.7); Bilirubin, Total 0.9 mg/dL (0.2-1.2); Calc. Creatinine Clearance 113 mL/min (70-130); Calcium 8.9 mg/dL (7.8-10.44); Carbon Dioxide 23 mmol/L (22-29); Chloride 106 mmol/L (98-107); Estimated GFR 111; Globulin 2.3 g/dL (2.4-3.5); Glucose 119 mg/dL (70-105); Magnesium 2.3 mg/dL (1.6-2.6); Potassium 3.7 mmol/L (3.5-5.1); Protein, Total 5.7 g/dL (6.0-8.3); Sodium 139 mmol/L (136-145)
[2022-04-03] MEDS: KETOTIFEN PO SCH ×2 (08:36→19:57)
[2022-04-03] MEDS: Ipratropium Bromide 0.03% Nasal Inhaler 30 ml Bottle EA NARE SCH ×3 (08:36→19:50)
[2022-04-03] MEDS: Famotidine/PF 20 mg/2ml Vial SLOW IVP SCH ×3 (08:42→21:47)
[2022-04-03] MEDS: methylPREDNISolone Sod Succ 40 MG VIAL IVP SCH ×2 (08:44→19:50)
[2022-04-03] MEDS: diphenhydrAMINE 25 MG in Sodium Chloride 0.9% 50 ML IVPB SCH ×2 (08:44→19:50)
[2022-04-03] MEDS: Sodium Chloride 0.9% 1,000 ML IV SCH ×2 (12:13→19:49)
[2022-04-03] MEDS: TRACE ELEMENT IV SCH (14:17)
[2022-04-03] MEDS: FAT EMULSION IV SCH (14:17)
[2022-04-03] MEDS: MULTIVITAMINS IV SCH (14:17)
[2022-04-03] MEDS: [UNRECOGNIZED DRUG - OTHER] IV SCH (14:17)
[2022-04-04 06:11] LABS: #Monocytes 0.6 thou/uL (0.11-0.59); #Neutrophils 7.1 thou/uL (1.40-6.50); %Basophils 0.3 % (0.0-1.0); %Eosinophils 0.5 % (0.0-10.0); %Lymphocytes 11.4 % (21.0-51.0); %Monocytes 6.7 % (0.0-10.0); Mean Corpuscular HGB CONC 33.9 g/dL (32.0-36.0); Mean Corpuscular Hemoglobin 31.5 pg (27.0-31.0); Mean Corpuscular Volume 92.8 fl (78.0-98.0); Mean Platelet Volume 7.6 fL (7.4-10.4); Platelet Count 169 10x3/uL (130-400); RBC Distribution Width 12.2 % (11.5-14.5); Red Blood Cell (RBC) Count 4.43 mill/uL (4.20-5.40); White Blood Cell (WBC) Count 8.7 10x3/uL (4.8-10.8)
[2022-04-04 06:35] LABS: ALT (SGPT) 263 U/L (8-55); AST (SGOT) 26 U/L (5-34); Albumin 3.3 g/dL (3.5-5.0); Alkaline Phosphatase 70 U/L (40-110); Anion Gap 12 mmol/L (10-20); BUN (Urea Nitrogen) 9 mg/dL (7.0-18.7); Bilirubin, Total 1.1 mg/dL (0.2-1.2); Calc. Creatinine Clearance 107 mL/min (70-130); Calcium 8.7 mg/dL (7.8-10.44); Carbon Dioxide 24 mmol/L (22-29); Chloride 107 mmol/L (98-107); Estimated GFR 110; Globulin 2.2 g/dL (2.4-3.5); Glucose 93 mg/dL (70-105); Magnesium 2.2 mg/dL (1.6-2.6); Phosphorus 4.1 mg/dL (2.3-4.7); Potassium 3.6 mmol/L (3.5-5.1); Protein, Total 5.5 g/dL (6.0-8.3); Sodium 139 mmol/L (136-145)
[2022-04-04] MEDS: methylPREDNISolone Sod Succ 40 MG VIAL IVP SCH ×2 (08:28→22:10)
[2022-04-04] MEDS: Famotidine/PF 20 mg/2ml Vial SLOW IVP SCH ×2 (08:28→22:10)
[2022-04-04] MEDS: KETOTIFEN PO SCH ×2 (08:28→21:35)
[2022-04-04] MEDS: Ipratropium Bromide 0.03% Nasal Inhaler 30 ml Bottle EA NARE SCH ×3 (08:28→21:35)
[2022-04-04] MEDS: diphenhydrAMINE 25 MG in Sodium Chloride 0.9% 50 ML IVPB SCH ×2 (08:28→22:10)
[2022-04-04] MEDS: [UNRECOGNIZED DRUG - OTHER] IV SCH (14:23)
[2022-04-04] MEDS: FAT EMULSION IV SCH (14:23)
[2022-04-04] MEDS: TRACE ELEMENT IV SCH (14:23)
[2022-04-04] MEDS: MULTIVITAMINS IV SCH (14:23)
[2022-04-04] MEDS: Sodium Chloride 0.9% 1,000 ML IV SCH ×2 (17:45→22:11)
[2022-04-05 05:40] VITALS: BP 114/78; TEMP 97.5
== END 2022-04-05 05:47 | disposition left against medical advice (07) | DRG 815 ==
LOC: ERS 14:48 → ERHOLD 17:46 → SJJU 03-19 02:40 → OBSVTOIN 03-19 12:00
PROVIDERS: ADMIT Internal Medicine; ATTEND Internal Medicine
PROC: 02HV33Z Insertion of Infusion Device into Superior Vena Cava, Percutaneous Approach (ICD-10-PCS; principal; 2022-03-19)
PROC: B548ZZA Ultrasonography of Superior Vena Cava, Guidance (ICD-10-PCS; 2022-03-19)
PROC: 0DB78ZX Excision of Stomach, Pylorus, Via Natural or Artificial Opening Endoscopic, Diagnostic (ICD-10-PCS; 2022-03-22)
PROC: 3E0436Z Introduction of Nutritional Substance into Central Vein, Percutaneous Approach (ICD-10-PCS; 2022-03-22)
DX: D89.40 Mast cell activation, unspecified (principal); E44.0 Moderate protein-calorie malnutrition; E86.0 Dehydration; Z20.822 Contact with and (suspected) exposure to COVID-19; E87.6 Hypokalemia; E03.9 Hypothyroidism, unspecified; F41.9 Anxiety disorder, unspecified; Z68.21 Body mass index [BMI] 21.0-21.9, adult; Z88.6 Allergy status to analgesic agent; Z88.8 Allergy status to other drugs, medicaments and biological substances; Z79.899 Other long term (current) drug therapy; R74.01 Elevation of levels of liver transaminase levels; Z53.29 Procedure and treatment not carried out because of patient's decision for other reasons
CPT/HCPCS: 36415; 36416; 36569; 70450; 71045; 71046; 74019; 74176; 76700; 80048; 80053; 80074; 80076; 81003; 81025; 82607; 83497; 83516; 83519; 83690; 83735; 84100; 84134; 84260; 84425; 84443; 85025; 85652; 85730; 86140; 86160; 86161; 88305; 93005; 93010; 96361; 96365; 96366; 96374; 96376; C1751; G0378; J0171; J1200; J1720; J2060; J2405; J2704; J2920; J3475; J3480; J3490; J7030; J7042; J7050; J7999; S0028; U0003; U0005